=== PATIENT | male | born 1980 ===

== ENCOUNTER 2020-07-07 09:06 | Emergency (ER) | payer SELFPAY ==
[~2020-07-07] VITALS: Ht 180.3 cm; Wt 77.0 kg
[2020-07-07 10:24] LABS: URINE BILIRUBIN - DIPSTICK NEGATIVE (NEGATIVE); URINE BLOOD DIPSTICK NEGATIVE (NEGATIVE); URINE COLOR YELLOW; URINE GLUCOSE - DIPSTICK NEGATIVE (NEGATIVE); URINE KETONE NEGATIVE (NEGATIVE); URINE NITRITE - DIPSTICK NEGATIVE (Negative); URINE PROTEIN - DIPSTICK NEGATIVE (NEG-TRACE); URINE SPECIFIC GRAVITY 1.025; URINE UROBILINOGEN - DIPSTICK 0.2 E.U./dL (0.2)
[2020-07-07 10:26] LABS: URINE LEUK ESTERASE SMALL (NEGATIVE)
[2020-07-07 10:33] LABS: URINE WBC 20-50 WBC/hpf (0-5)
[2020-07-07] MEDS ORDERED: BACTRIM DS1 TAB PO (10:44)
[2020-07-07 11:15] VITALS: BP 147/97
== END 2020-07-07 11:17 | disposition home or self-care (01) | DRG 690 ==
LOC: ED 09:06
DX: N39.0 Urinary tract infection, site not specified (principal); F17.210 Nicotine dependence, cigarettes, uncomplicated; Z20.2 Contact with and (suspected) exposure to infections with a predominantly sexual mode of transmission